=== PATIENT | male | born 1975 | race Caucasian/White ===

== ENCOUNTER 2023-11-08 20:02 | Emergency (ER) | payer OTHER ==
[~2023-11-08] VITALS: Ht 177.8 cm; Wt 72.6 kg
[2023-11-08 20:17] VITALS: BP 161/85
[2023-11-08] MEDS ORDERED: CEPH500 PO (20:18)
== END 2023-11-08 20:30 | disposition home or self-care (01) ==
LOC: ER 20:02
DX: S81.802A Unspecified open wound, left lower leg, initial encounter (principal); L02.416 Cutaneous abscess of left lower limb; X58.XXXA Exposure to other specified factors, initial encounter
CPT/HCPCS: 99282; A9270